=== PATIENT | female | born 1985 | race Hispanic/Latino ===

== ENCOUNTER 2018-07-09 07:15 | Day surgery (SDC) | payer MEDICAID ==
[2018-07-08 16:14] VITALS: BP 115/81
[2018-07-08 16:29] LABS: EOSINOPHILS % (AUTO) 1.3 % (0.0-8.0); HEMATOCRIT 43.4 % (36-48); LYMPHOCYTES % (AUTO) 33.7 % (21.0-51.0); MEAN CORPUSCULAR HEMOGLOBIN 29.6 pg (27.0-33.0); MEAN CORPUSCULAR HGB CONC 33.3 g/dL (32.0-36.0); MONOCYTES % (AUTO) 7.1 % (3.0-13.0); NEUTROPHILS % (AUTO) 56.9 % (40.0-77.0); NUCLEATED RED BLOOD CELLS 0.1 % (0.0-0.19); PLATELET COUNT (AUTO) 258 K/uL (130-400); RED BLOOD CELL COUNT(AUTO) 4.88 MIL/uL (4.00-5.50); RED CELL DISTRIBUTION WIDTH 13.3 % (11.0-15.5); WHITE BLOOD COUNT (AUTO) 9.4 K/uL (4.8-10.8)
[2018-07-09] VITALS (14 sets, daily range): BP systolic 105–129; BP diastolic 60–88
[~2018-07-09] VITALS: Ht 154.9 cm; Wt 95.5 kg
[~2018-07-09 07:15] MED LIST: CALDOLOR 800MG+NS 250ML 250 ML IV SCH; LACTATED RINGERS 1000ML 1,000 ML IV SCH
[2018-07-09] MEDS ORDERED: BUPIVACAINE/PF 0.25% 30ML VIAL IJ ONE (09:16)
[2018-07-09] MEDS ORDERED: DEXAMETHASONE SOD PHOSPHATE 10MG/ML 1ML VIAL ONE (09:22)
[2018-07-09] MEDS ORDERED: LIDOCAINE PF 2% 5ML ABBOJECT ONE (09:22)
[2018-07-09] MEDS ORDERED: ROCURONIUM 10MG/1ML SYR 10 MG/ML ML ONE ×2 (09:23→09:41)
[2018-07-09] MEDS ORDERED: FENTANYL CITRATE PF 50 MCG/1 ML 2ML VIAL ONE ×2 (09:23→09:41)
[2018-07-09] MEDS ORDERED: PROPOFOL 10 MG/ML 20ML VIAL IV ONE (09:23)
[2018-07-09] MEDS ORDERED: GLYCOPYRROLATE 1 MG/5 ML SYRINGE ONE (09:23)
[2018-07-09] MEDS ORDERED: NEOSTIGMINE 5MG/5ML SYR IV ONE (09:23)
[2018-07-09] MEDS ORDERED: MIDAZOLAM HCL 1 MG/ML 2ML VIAL ONE (09:23)
[2018-07-09] MEDS ORDERED: ONDANSETRON HCL 4 MG/2 ML VIAL ONE (09:23)
[2018-07-09] MEDS ORDERED: MORPHINE SULFATE 4 MG/1ML SYG ONE (10:57)
== END 2018-07-09 12:10 | disposition home or self-care (01) ==
LOC: DAH 07:15
DX: Z30.2 Encounter for sterilization (principal); E66.9 Obesity, unspecified
CPT/HCPCS: 36415; 58670; 84702; 85025; A4215; A4351; C1769 ×3; G0168; J1100; J1741; J2001; J2250; J2270; J2405; J2704; J2710; J3010; J3490 ×2; J7030; J7120